=== PATIENT | female | born 1965 | race Caucasian/White ===

== ENCOUNTER → 2016-07-22 | Day surgery (SDC) | payer OTHER ==
[~2016-07-22] MED LIST: BUPIVACAINE HCL PF 0.5% 10 ML VIAL ONE; KETOROLAC TROMETHAMINE 30 MG/ML (IVP) VIAL IV PUSH ONE; LACTATED RINGER'S 1000 ML INJ 1,000 ML ONE; MIDAZOLAM HCL 2 MG/2 ML VIAL ONE; ONDANSETRON HCL 4 MG/2 ML VIAL IV PUSH ONE; PROPOFOL 200 MG/20 ML AMP IV ONE; ceFAZolin 2 GM PREMIX 50 ML ONE
--- NOTE | 2016-07-22 14:13 | MP ---
cc: GIULIA CASAS DATE OF SURGERY: 07/22/2016 SURGEON: Giulia Casas MD. [employer] F[employer]ER AND PRESIDENT: None. PREOPERATIVE DIAGNOSIS: Right foot bone spurs POSTOPERATIVE DIAGNOSES Right foot bone spurs. PROCEDURE: 1. right foot tailor's exostectomy 2. Right foot navicular exostectomy. PATHOLOGY: Sent, none. ANESTHESIA: General. HEMOSTASIS Pneumatic calf tourniquet at 250 mmHg ESTIMATED BLOOD LOSS: Less then 5 ml. MATERIALS USED Include bone wax 3-0 Monocryl 3-0 Prolene. INJECTABLES 10 cc of 0.5% Marcaine plain COMPLICATIONS None. INDICATIONS FOR PROCEDURE: Miss Johns is a 51-year-old patient referred to me by one of my partners, for a painful prominence in the anterior aspect of her ankle, extending into the dorsal aspect of her foot. The patient tried offloading and applying pressure to the area but it has continued to cause pain and discomfort. We explained that spurs are due to osteoarthritis and removing them may not be a permanent solution. The patient understands and still wishes to continue in hopes of a temporary or possible permanent improvement in her discomfort. PROCEDURE: Under mild sedation, patient was brought into the operating room placed on the operating table in supine position. Following IV sedation pneumatic calf tourniquet was placed on the right calf and foot was then scrubbed, prepped and draped in the usual aseptic manner attention was then directed to the dorsal aspect of the rear foot more prominence of the easily palpated, a 30 cm curvilinear incision was created over the exostoses and through the skin and subcutaneous tissue was taken to identify any retraction of any vital neurovascular structures. The extensor retinaculum was excised and <<2:42>> were retracted out of place, and once the bone was exposed there was start <<2:53>> dorsal bone spurs, primarily in on the dorsal aspect of the Talar head but some also on the dorsal aspect of the navicular body. These were all sharply removed using a rongeur. There was some thickened retinaculum that was also extended. And is flushed with copious amounts of sterile saline. The skin was temporarily closed <<3:21>> to ensure that all the bony prominences had been removed. A thin layer of bone wax was then applied to the exposed cancellous bone and then a layered closure with 3-0 Monocryl was performed. The skin was closed with Prolene with minimal tension to bone incision site. Pneumatic ankle tourniquet was released and a prompt hyperemic response to all digits of the right foot. 10 cc of 0.5% Marcaine plain were injected around the incision site and sterile dressing with adaptic 4x4s, Nash and Tristan wrap were applied. The patient tolerated the procedure and the anesthesia well. She will recover in the PACU for a period time before being discharged home with written and oral postoperative instructions. Giulia Lomeli /11:22 AM /2:02 PM MTDD
== END | disposition home or self-care (01) ==
LOC: ESDC 07:43
PROVIDERS: ATTEND Podiatrist Foot & Ankle Surgery
DX: M77.31 Calcaneal spur, right foot (principal); M19.071 Primary osteoarthritis, right ankle and foot
CPT/HCPCS: 01480; 28120; J0690; J1885; J2250; J2405; J3010; J7120